=== PATIENT | male | born 1960 | race Caucasian/White ===

== ENCOUNTER → 2016-10-02 | Outpatient (CLI) | payer BC ==
--- NOTE | 2016-10-02 22:33 | CT ---
EXAMINATION TYPE: CT chest w con DATE OF EXAM: 10/02/2016 5:08 PM COMPARISON: Radiographs 05/12/2016 HISTORY: 56-year-old male with difficulty breathing for one year. TECHNIQUE: Contiguous axial scanning of the chest after the administration of 100 mL of Omnipaque 300 . Coronal/sagittal reconstructions performed. CT DLP: 805mGycm. Automatic exposure control utilized for a dose reduction. FINDINGS: The heart is normal size without pericardial effusion. Mild coronary vessel calcifications are presen t and are remarkable for coronary artery disease. The ascending aorta is ectatic and 3.9 cm. There is variant direct takeoff of the left vertebral april ry directly from the aortic arch. 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 No thoracic lymphadenopathy. -Evaluation of the lungs shows a 4 mm pulmonary nodule at the anterior right midlung, axial image 32. -6 mm pulmonary nodule posterior right midlung, axial image 34. -4 mm pulmonary nodule anterior right midlung just below, axial image 35. No consolidation or pleural effusion. Visualized upper abdomen shows diffuse decreased attenuation of the liver. Bones: Mild degenerative disc disease mid thoracic spine. No osseous destructive process. IMPRESSION: 1. No acute pulmonary process. 2. A few pulmonary nodules on the right measuring up to 6 mm. A 6-12 month and subsequent 18-24 month follow-up exam is recommended to ensure stability and a benign etiology. 3. Ectatic ascending aorta (3.9 cm) and mildly aneurysmal upper descending thoracic aorta (3.3 cm). 4. Hepatic steatosis. Correlate with LFTs, lipid profile, and patient risk factors.
== END | disposition home or self-care (01) ==
LOC: RADCTMAIN 16:38
PROVIDERS: ATTEND Internal Medicine Critical Care Medicine
DX: R91.8 Other nonspecific abnormal finding of lung field (principal); I71.2 Thoracic aortic aneurysm, without rupture; R06.2 Wheezing
CPT/HCPCS: 71260

== ENCOUNTER 2018-03-11 05:43 | Day surgery (SDC) | payer BC ==
[2018-03-05 10:34] VITALS: BMI 24.2
[~2018-03-11 05:43] MED LIST: FAMOTIDINE 20 MG/2 ML VIAL IV ONE; ceFAZolin 1,000 MG in DEXTROSE/WATER 1 50ML.BAG IV ONE
[2018-03-11] MEDS ORDERED: LIDOCAINE 1% 20 ML VIAL (10MG/ML) FOR IV START INTRADERMA PRN (06:00)
[2018-03-11] MEDS ORDERED: MIDAZOLAM 2 MG/2 ML VIAL IV PRN (06:00)
[2018-03-11] MEDS ORDERED: LACTATED RINGERS 1,000 ML IV SCH (06:00)
[2018-03-11] MEDS ORDERED: HYDROmorphone 1 MG/ML 1 ML SYRINGE IVP PRN (06:00)
[2018-03-11 06:15] VITALS: RESP 16
[2018-03-11] MEDS: OXYMETAZOLINE 0.05% NASL SPRAY 1 SPRAY BOTTLE NASAL ONE ×5 (06:19→06:37)
[2018-03-11] MEDS ORDERED: ONDANSETRON 4 MG/2 ML VIAL IVP ONE (07:25)
[2018-03-11] MEDS ORDERED: BUPIVACAIN-EPI 0.5%-1:200,000 30 ML VIAL SQ ONE (07:26)
[2018-03-11] MEDS ORDERED: CIPROFLOXACIN-DEXAMETH 0.3-0.1% DROPS 7.5 ML BTL BOTH EARS ONE (07:26)
[2018-03-11] MEDS ORDERED: LIDOCAINE 1%-EPI 1:100,000 30 ML VIAL SQ ONE (07:26)
[2018-03-11] MEDS ORDERED: MIDAZOLAM 2 MG/2 ML VIAL ONE (07:28)
[2018-03-11] MEDS ORDERED: KETOROLAC 30 MG/ML 1 ML VIAL ONE (07:28)
[2018-03-11] MEDS ORDERED: SUCCINYLCHOLINE CHLORIDE 100 MG/5 ML SYR IV ONE (07:28)
[2018-03-11] MEDS ORDERED: fentaNYL (PF) 50 MCG/ML 2 ML AMP ONE (07:28)
[2018-03-11] MEDS ORDERED: PROPOFOL 10 MG/ML 20 ML VIAL IV ONE (07:28)
[2018-03-11] MEDS ORDERED: LIDOCAINE 1% INJ 10MG/ML (20 ML MDV) ONE (07:28)
[2018-03-11] MEDS ORDERED: LACTATED RINGERS 1,000 ML IV ONE (08:07)
[2018-03-11 08:33] VITALS: TEMP 97.2
--- NOTE | 2018-03-11 08:36 | P.OP ---
Date of Procedure: 03/11/18 Preoperative Diagnosis: Chronic eustachian tube dysfunction Hypertrophy of posterior inferior turbinates Chronic otitis media with effusion Conductive hearing loss bilaterally Retained left tube with resultant perforation upon removal requiring myringoplasty. Postoperative Diagnosis: Same Procedure(s) Performed: Bilateral direct microscopic tympanostomy tube placement Microscopic removal of left tympanostomy tube with tympanostomy and myringoplasty, left Bilateral endoscopic balloon eustachian tuboplasty Bilateral posterior resection of the inferior turbinates Anesthesia: GETA Surgeon: Jose Ferrari Estimated Blood Loss (ml): 0 Pathology: none sent Condition: stable Disposition: PACU Indications for Procedure: This patient has had a lifetime of eustachian tube dysfunction with recurrent alert effusion chronic otitis media with effusion conductive hearing loss etc. He's had several sets of tubes and continues to need these tubes and after long discussion we decided to proceed forward with a bilateral balloon eustachian tuboplasty along with placement of new tubes and removal of a left oral tube with a patch to the left tympanic membrane along with removal of some crowded tissue of the posterior inferior turbinates. All risks, benefits, and alternative therapies were discussed. Consent was obtained and all questions were answered. Operative Findings: Patient was found to have adhesions eustachian tube bilaterally with large hypertrophic posterior inferior turbinates are were crowding the anterior face of the eustachian tube orifice. The patient was also found to have a bilateral middle ear effusion and myringosclerosis of both tympanic membranes. Description of Procedure: This patient was taken to the operative room and placed in supine position. A general inhalation anesthetic was administered the patient by mask and subsequently intubated with a cuffed endotracheal tube by the department of anesthesia with a functioning IV line in place. Patient was monitored throughout the entire case by the department of anesthesia. Both ears were visualized with a 250 mm Zeiss microscope and cerumen and epithelial debris was removed from the external auditory canals bilaterally. Tympanostomy incisions were made inferiorly and tubes were placed with removal of a large amount of middle ear effusion. Patient had a retained nonfunctioning tube on the left which was removed with a house pick after tympanostomy was performed, which left a perforation. We then prepped the drumhead after tube removal. After the drumhead perforation was prepped we cut graft material utilizing a bio design graft material and placed as an overlay graft. The graft was in excellent position the edge of the perforation was roughened to allow closure and the patient tolerated this well. After tubes were placed bilaterally and the left tube was removed from the left ear along with a left myringoplasty, attention was then paid to the nose were with use of an endoscope utilizing a 0 Walls dallin scope we entered the nose bilaterally and went to the eustachian tube orifice bilaterally. There was a large amount of posterior inferior turbinate tissue that was resected with a up-biting boss. After the posterior portion of the inferior turbinates were resected with use of a up-biting boss the balloon was inserted into the eustachian tube orifice and we did insufflation's in the standard fashion. After both eustachian tubes were insufflated with the balloon in the appropriate fashion all instrumentation was removed. Hemostasis was spontaneous and complete. To summarize patient had a new tubes placed bilaterally along with resection of the posterior portion of the inferior turbinates. We removed a retained left tube and did a patch on the left side. Balloon eustachian tuboplasty was performed bilaterally following standard protocol and we did resect the posterior portion of the inferior turbinate to prevent crowding. Patient tolerated this well and follow- up will be in the office in 1 week for recheck. The patient is to call me if any from should arise in the interim.
[2018-03-11 09:14] VITALS: PULSE 61
[2018-03-11 09:26] VITALS: BP 137/85
== END 2018-03-11 09:45 | disposition home or self-care (01) ==
LOC: OR 05:43
PROVIDERS: ATTEND Otolaryngology
DX: H90.0 Conductive hearing loss, bilateral (principal); J34.3 Hypertrophy of nasal turbinates; H65.493 Other chronic nonsuppurative otitis media, bilateral; K21.9 Gastro-esophageal reflux disease without esophagitis; J45.909 Unspecified asthma, uncomplicated; Z87.891 Personal history of nicotine dependence; H93.19 Tinnitus, unspecified ear; Z79.2 Long term (current) use of antibiotics; Z79.1 Long term (current) use of non-steroidal anti-inflammatories (NSAID); Z79.891 Long term (current) use of opiate analgesic; Z79.51 Long term (current) use of inhaled steroids; Z79.52 Long term (current) use of systemic steroids; Z79.899 Other long term (current) drug therapy; Z91.09 Other allergy status, other than to drugs and biological substances
CPT/HCPCS: 69436; 69949; 30140; C1763; C1726; J2250; J2405; J2001; J3010; J1885; J0690; J0330; J2704

== ENCOUNTER → 2019-03-29 | Outpatient (CLI) | payer BC ==
--- NOTE | 2019-03-29 18:05 | PN ---
PROGRESS NOTE Derrick is 58 and coming in for an annual check regarding his obstructive sleep apnea. He is back to using his CPAP on a regular basis. He has severe obstructive sleep apnea with an AHI of 35. Despite demonstrating adequate compliance, the patient continues to be increasingly tired and sleepy, especially during working hours. At times this is affecting his ability to function and concentrate. The patient has gained about 18 pounds since his last evaluation. He used to weigh 222 pounds and currently is up to 240. Despite that, he remains on CPAP therapy at a pressure of at a pressure of 9 cm and the treatment continues to be successful with an AHI while on treatment being at 0.4. Unfortunately he continues to be somnolent and sleepy. His [place] score is 17. He is averaging more than 6 hours of CPAP use per night. As such, the patient may be a good candidate for stimulant therapy, knowing that he has been having issues with increased sleepiness and he is worried that he may fall asleep even while driving. No sleep paralysis. No hallucinations. No cataplexy. No substance abuse. No head trauma. No other secondary comorbidities contributing to increased sleepiness. REVIEW OF SYSTEMS: Fourteen-point review of system was done. Positive findings are all mentioned above in the history of present illness. In summary, the patient continues to be sleepy and tired. He has gained weight. No sinus allergies. No nasal congestion, dry nose or dry mouth. No heartburn. No chest pain or shortness of breath. No headaches. No swelling in the lower extremities. No nausea or vomiting. No abdominal pain. No polyuria. PHYSICAL EXAMINATION: VITAL SIGNS: BP is 131/79, pulse 66, respirations 16, temperature 97.7. Saturations are 98% on room air. Height is 6 feet 5 inches, weight is 240. BMI is 28.4. [place] score is 9. GENERAL APPEARANCE: Calm, comfortable. HEAD: Atraumatic, normocephalic. NECK: Supple. No JVD. No goiter or neck mass. Mallampati class IV. LUNGS: Clear to auscultation. HEART: Heart sounds are regular rate and rhythm. Normal S1, S2. No S3, S4. No murmurs. ABDOMEN: Soft, nontender. No organomegaly. EXTREMITIES: No edema. No cyanosis or clubbing. IMPRESSION: 1. Severe obstructive sleep apnea with apnea/hypopnea index of 35, currently on CPAP therapy with adequate compliance. The patient's AHI is down to 0.4 while on treatment without any significant leaks around the mask. He is providing adequate hours of CPAP use; more than 6 hours; and despite that he continues to be somnolent and sleepy. Rule out residual hypersomnia related to obstructive sleep apnea despite adequate treatment. 2. Hypersomnia. [place] score of 17 to 19. 3. Obesity with interval 18-pound weight gain. Current BMI is 28.4. PLAN: 1. Continue CPAP therapy at the same level of pressure. 2. Renew the CPAP supplies. 3. The patient is using AirFit P10, medium size. 4. Offer this patient modafinil 200 mg p.o. to be taken around 10:00 in the morning, as the patient's most sleepy period is somewhere between 11 a.m. 3 p.m. This should at least stimulate the patient so that he can function properly during working hours. Will continue to follow. The patient will let me know about his overall clinical response while on CPAP and modafinil. MMRONITL / IJN: [id number] /
== END | disposition home or self-care (01) ==
LOC: SLEEP 16:12
PROVIDERS: ATTEND Internal Medicine Critical Care Medicine
DX: G47.33 Obstructive sleep apnea (adult) (pediatric) (principal); G47.10 Hypersomnia, unspecified; E66.9 Obesity, unspecified; Z68.28 Body mass index [BMI] 28.0-28.9, adult; Z99.89 Dependence on other enabling machines and devices

== ENCOUNTER → 2020-03-06 | Outpatient (CLI) | payer BC ==
--- NOTE | 2020-03-06 16:53 | PN ---
PROGRESS NOTE [facility] PROGRESS NOTE: This patient is well known to me. He is 59 years old. He has obstructive sleep apnea with an AHI of 35. He has been extremely compliant with CPAP therapy. During his last evaluation, he was still having hypersomnia and sleepiness. His [place] score was quite high at around 17, even while being successfully treated with CPAP therapy. Based on that, we added Provigil 200 mg in the morning. While on Provigil, the patient did well, especially for the first 6 months. Following that and over the past 3-4 months, the efficacy of Provigil has gone down. The patient is feeling sleepy again despite being on Provigil. In fact, he tells me that the Provigil has not affected his daytime sleepiness. He is falling asleep while working on his computer. He is also taking Celexa in the morning. I checked his compliance data on his CPAP machine, and he is very compliant. He has been averaging around 7.2 hours of CPAP use per night and CPAP use for more than 4 hours is above 80%. His leak is on the order of 1 L and his AHI is down to 0.7. He was having some episodes of vertigo and he was seen by Dr. Ferrari. He was given an MRI of the brain which showed some arachnoid cysts. This is not related to any symptoms of hypersomnia. No seizure activity. No headaches. No substance abuse. No head trauma. No history of any meningitis. His father had obstructive sleep apnea, and he was adequately treated with CPAP. No family history of narcolepsy. No sleep paralysis, hallucinations or cataplexy. No other comorbidities to account for his chronic hypersomnia. PHYSICAL EXAMINATION: VITAL SIGNS: BP is 148/97, pulse 64, respirations 16, temperature 97.8, saturation 97% on room air. Height is 6 feet 5 inches, weight is 263, and BMI is 30.7. [place] score is 17. GENERAL APPEARANCE: Calm, comfortable. HEAD: Atraumatic, normocephalic. NECK: Supple. No JVD. No goiter or neck masses. LUNGS: Clear to auscultation. HEART: Heart sounds are regular rate and rhythm. Normal S1, S2. No S3, S4. No murmurs. ABDOMEN: Soft, nontender. No organomegaly. EXTREMITIES: No edema. No cyanosis or clubbing. IMPRESSION: 1. Obstructive sleep apnea, severe. AHI of 35. Despite being adequately treated with CPAP therapy, the patient continues to be somnolent and sleepy. Provigil was added, with some limited success initially, and subsequently his symptoms of hypersomnia are back. Despite his 20- to 22-pound weight gain, the patient continues to be successfully treated regarding his obstructive sleep apnea and there is no major impact on his excessive daytime sleepiness. No other obvious comorbidities contributing to that. 2. Hypersomnia despite being adequately treated with CPAP therapy and despite being on Provigil. 3. Obesity with interval 22-pound weight gain. 4. History of attention deficit hyperactivity disorder. PLAN: 1. Continue CPAP therapy at the same level of pressure. 2. Increase the Provigil to 200 mg twice a day. 3. Based on his suboptimal response to Provigil, I may switch this patient to Sunosi initially at 37.5 mg and later on to 75 mg p.o. daily. The paperwork for Sunosi will be sent, and the patient will see me back in 3 months' time in the main office to give me an update on his clinical response and compliancy while being on his new medication. Meanwhile, continue using the CPAP and continue using the Provigil for now. Sleep hygiene measures are adequate. He is extending his sleep hours to an average of 8 hours, which I think is adequate. No other obvious comorbidities contributing to his hypersomnia. MMODL / IJN: [id number] /
== END | disposition home or self-care (01) ==
LOC: SLEEP 15:30
PROVIDERS: ATTEND Internal Medicine Critical Care Medicine
DX: G47.33 Obstructive sleep apnea (adult) (pediatric) (principal); G47.10 Hypersomnia, unspecified; E66.9 Obesity, unspecified; Z86.59 Personal history of other mental and behavioral disorders; Z99.89 Dependence on other enabling machines and devices

== ENCOUNTER → 2020-06-06 | Outpatient (CLI) | payer BC | END | disposition home or self-care (01) | LOC: LABWHC1 12:50 | PROVIDERS: ATTEND Family Medicine | DX: Z20.828 Contact with and (suspected) exposure to other viral communicable diseases (principal) | CPT/HCPCS: U0003; C9803 ==

== ENCOUNTER → 2020-08-21 | Outpatient (CLI) | payer BC ==
--- NOTE | 2020-08-21 17:14 | PN ---
PROGRESS NOTE This is a 59-year-old male patient coming in for a followup regarding his obstructive sleep apnea. The patient is very well known to me. The patient has been diagnosed having severe CIELO with an AHI of 35 and unfortunately, despite adequate treatment of his obstructive sleep apnea with a CPAP machine and adequate compliance that has been demonstrated over the years, the patient continues to be somnolent and sleepy. At that point the patient was started on Provigil 200 mg initially, and for some time he felt great. Subsequently the Provigil lost its effect, even while increasing the dose to 200 mg twice a day. For now, despite his effective treatment, the patient continues to be somnolent and sleepy. [place] Score is 19, and this is affecting his quality of life. He gets tired and sleepy during the day, especially during working hours. The patient is averaging around 7.1 hours of CPAP use per night. His CPAP use for more than 4 hours is 28/30, which is above 90%. His AHI is down to 0.7 with a leak of 7 L/minute. He is trying to lose weight. He is down to 64 pounds. No head trauma. No meningitis. No stroke. No side effects of Provigil. Note that he has used other stimulants such as Adderall at a younger age, which improved his attention span and concentration and fatigue. During his last evaluation I made an attempt to switch this patient to Sunosi at a dose of 75 mg p.o. daily. A prescription was sent and it was declined by the insurance. Based on the letter obtained from the [employer] insurance company, the patient had to be tried at least on 2 different drugs, such as Provigil/Nuvigil or any other conventional stimulants such as dexamphetamine or methylphenidate prior to being considered for Sunosi. Based on that, I am thinking of proceeding with treatment with low-dose Adderall 10 mg b.i.d. to improve his daytime somnolence and sleepiness. He is agreeable to that. No history of any substance abuse. REVIEW OF SYSTEMS: Fourteen-point review of systems was done. Positive findings are all mentioned above in the history of present illness. No sleep paralysis. No hallucinations. No cataplexy. No head trauma. No seizure activity. No issues with blood pressure. PHYSICAL EXAMINATION: VITAL SIGNS: BP is 130/90, pulse 91, respirations 24, temperature 96.9, saturation 97% on room air. Weight is 64. BMI is 27 to 29.7. [place] score is 19. GENERAL APPEARANCE: Calm, comfortable. HEAD: Atraumatic, normocephalic. NECK: Supple. No JVD. No goiter or neck masses. Mallampati class IV. LUNGS: Clear to auscultation. HEART: Heart sounds are regular rate and rhythm. Normal S1, S2. No S3, S4. No murmurs. ABDOMEN: Soft, nontender. No organomegaly. EXTREMITIES: No edema. No cyanosis or clubbing. NEUROLOGIC: Awake and alert. There is no focal neurological deficit. IMPRESSION: 1. Severe obstructive sleep apnea, AHI of 35, adequately treated with CPAP, and the compliance data has been satisfactory. Nevertheless, the patient continues to be somnolent and sleepy with an elevated [place] score of 19. This hypersomnia and sleepiness persisted despite being on Provigil at a higher dose of 200 mg twice a day. 2. Hypersomnia; could be related to obstructive sleep apnea. Not responsive to Provigil. 3. Obesity with interval weight loss. 4. Previous history of attention deficit hyperactivity disorder. PLAN: 1. Continue CPAP therapy. Compliancy was checked. Numbers look great. Keep the same pressure setting and keep the same compliancy effort as being done by the patient. 2. Start the patient on Adderall 10 mg twice a day, the first tablet to be taken at 7:00, the the second tablet around 1 p.m., to give him enough stimulation for his functionality during the day, especially during working hours. 3. Monitor side effect profile of Adderall. 4. Stop the Provigil for now, knowing that this has not caused any significant improvement. 5. Ultimately, if this fails, the patient will be considered for an alternative stimulant such as Sunosi. Based on insurance requirements, the patient had to be started on an alternative conventional stimulant, and for that reason I started the patient on Adderall. Side effect profile was explained. The patient has taken the medication in the past, and he is willing to try it again. He will see me back in a few months' time in followup. MMODL / IJN: [id number] /
== END ==
LOC: SLEEP 15:23
PROVIDERS: ATTEND Internal Medicine Critical Care Medicine
DX: G47.33 Obstructive sleep apnea (adult) (pediatric) (principal); G47.10 Hypersomnia, unspecified; E66.9 Obesity, unspecified; F90.9 Attention-deficit hyperactivity disorder, unspecified type; Z68.29 Body mass index [BMI] 29.0-29.9, adult; Z87.891 Personal history of nicotine dependence

== ENCOUNTER → 2020-09-24 | Outpatient (CLI) | payer BC ==
--- NOTE | 2020-09-24 17:27 | XR ---
EXAMINATION TYPE: XR KUB DATE OF EXAM: 09/24/2020 Comparison: None Clinical History: 60-year-old male Abd pain Findings: Lung bases are clear. No evidence for free intraperitoneal air. No dilated small bowel or air-fluid levels. Scattered [id number] stool with air extending dista lly to the rectum. Right-sided pelvic phleboliths. Impression: No evidence for free air or bowel obstruction. Mild to moderate stool burden.
== END | disposition home or self-care (01) ==
LOC: RADXRMAIN 16:41
PROVIDERS: ATTEND Family Medicine
DX: R10.9 Unspecified abdominal pain (principal)
CPT/HCPCS: 74018

== ENCOUNTER → 2020-12-03 | Outpatient (CLI) | payer BC | END | disposition home or self-care (01) | LOC: LABWHC1 07:13 | PROVIDERS: ATTEND Family Medicine | DX: R51.9 Headache, unspecified (principal) | CPT/HCPCS: 36415; 83835 ==

== ENCOUNTER → 2020-12-18 | Outpatient (CLI) | payer BC ==
--- NOTE | 2020-12-18 18:38 | ECHOF ---
Referral Reason:R51.9 Headache, I10 Hypertension MEASUREMENTS -------- HEIGHT: 200.7 cm WEIGHT: 117.9 kg BP: IVSd: 1.7 cm (0.6 - 1.1) LVIDd: 3.6 cm (3.9 - 5.3) LVPWd: 1.6 cm (0.6 - 1.1) EDV(Teich): 53 ml IVSs: 1.9 cm LVIDs: 2.3 cm LVPWs: 1.9 cm %IVS Thck: 10 % ESV(Teich): 18 ml EF(Teich): 66 % %FS: 36 % SV(Teich): 35 ml LALs A4C: 4.8 cm LAAs A4C: 17.5 cm LAESV A-L A4C: 54 ml LAESV MOD A4C: 45 ml LALs A2C: 4.3 cm LAAs A2C: 13.6 cm LAESV A-L A2C: 36 ml LAESV MOD A2C: 35 ml LAESV(A-L): 47 ml LAESV Index (A-L): 18.25 ml/m Ao Diam: 3.6 cm (2.0 - 3.7) AV Cusp: 1.9 cm (1.5 - 2.6) MV E Jhonny: 0.56 m/s MV DecT: 287 ms MV Dec [place]: 2.0 m/s MV A Jhonny: 0.85 m/s MV E/A Ratio: 0.66 MV PHT: 83 ms LVOT Vmax: 1.20 m/s LVOT maxP.73 mmHg AV Vmax: 1.83 m/s AV maxP.38 mmHg AV Vmax: 1.93 m/s AV Vmean: 1.33 m/s AV maxP.92 mmHg AV meanP.72 mmHg AV Env.Ti: 221 ms AV VTI: 29.4 cm AR Vmax: 3.75 m/s AR maxP.33 mmHg AR PHT: 559 ms AR Dec Time: 1927 ms AR Dec [place]: 1.9 m/s FINDINGS -------- Sinus rhythm. This was a technically difficult study with suboptimal views. The left ventricular size is normal. There is moderate concentric left ventricular hypertrophy. O verall left ventricular systolic function is normal with, an EF between 55 - 60 %. The diastolic fi lling pattern is normal for the age of the patient 13.09. The right ventricle is normal in size. Normal LA size by volume 22+/-6 ml/m2. The right atrial size is normal. Lumason used Interatrial and interventricular septum intact. There is mild aortic valve sclerosis. There is mild aortic regurgitation. There is no evidence of aortic stenosis. No mitral regurgitation. Mild tricuspid regurgitation present. There is no evidence of pulmonary hypertension. The right v entricular systolic pressure, as measured by Doppler, is {RVSP}. There is no pulmonic regurgitation present. The aortic root is mildy dilated. IVC Not well visulized. There is no pericardial effusion. CONCLUSIONS -------- 1. The left ventricular size is normal. 2. There is moderate concentric left ventricular hypertrophy. 3. Overall left ventricular systolic function is normal with, an EF between 55 - 60 %. 4. There is mild aortic valve sclerosis. 5. There is mild aortic regurgitation. 6. Mild tricuspid regurgitation present. 7. The aortic root is mildy dilated. PARTY CHIEF: Katarzyna Johansen RDCS
--- NOTE | 2020-12-19 07:17 | US ---
EXAMINATION TYPE: US carotid duplex BILAT DATE OF EXAM: 12/18/2020 COMPARISON: NONE CLINICAL HISTORY: R51.9 Headache. EXAM MEASUREMENTS: RIGHT: Peak Systolic Velocity (PSV) cm/sec ----- Right CCA: 87.0 ----- Right ICA: 72.9 ----- Right ECA: 115.0 ICA/CCA ratio: 0.84 RIGHT: End Diastole cm/sec ----- Right CCA: 20.4 ----- Right ICA: 20.6 ----- Right ECA: 19.2 LEFT: Peak Systolic Velocity (PSV) cm/sec ----- Left CCA: 103.0 ----- Left ICA: 85.6 ----- Left ECA: 95.8 ICA/CCA ratio: 0.83 LEFT: End Diastole cm/sec ----- Left CCA: 26.5 ----- Left ICA: 27.2 ----- Left ECA: 15.6 VERTEBRALS (direction of flow): Right Vertebral: Antegrade Left Vertebral: Antegrade Rhythm: Normal No significant stenosis seen. No elevated velocities. IMPRESSION: No sonographic evidence for hemodynamically significant stenosis of the bilateral carotid arteries. Criteria for Assigning % of Stenosis / Diameter reduction (Estimation based on the indirect measurements of the internal carotid artery velocities (ICA PSV). 1. Normal (no stenosis)=ICA PSV < 125 cm/s: ratio < 2.0: ICA EDV<40 cm/s. 2. Less than 50% stenosis=ICA PSV < 125 cm/s: ratio < 2.0: ICA EDV<40 cm/s. 3. 50 to 69% stenosis=ICA PSV of 125 to 230 cm/s: ration 2.0 ? 4.0: ICA EDV 40-100 cm/s. 4. Greater than 70% stenosis to near occlusion= ICA PSV > 230 cm/s: ratio > 4.0: ICA EDV > 100 cm/s. 5. Near occlusion= ICA PSV velocities may be low or undetectable: variable ratio and ICA EDV. 6. Total occlusion=unable to detect flow.
--- NOTE | 2020-12-19 07:22 | CT ---
EXAMINATION TYPE: CT brain wo/w con DATE OF EXAM: 12/18/2020 COMPARISON: None INDICATION: headaches and htn DLP: 2059.8 mGycm, Automated exposure control for dose reduction was used. CONTRAST: None CT of the brain is performed utilizing 3 mm thick sections through the posterior fossa and 3 mm thick sections through the remaining calvarium. Study is performed within 24 hours of arrival to the hosp [facility]. No abnormal hyperdensity is present to suggest an acute intracranial hemorrhage. There is a very low density area within the posterior medial right posterior fossa likely is an arach noid cyst. Extra-axial spaces otherwise appear within normal limits. Ventricles and sulci appear appr opriate for the patient's age. No acute infarcts are evident. There appears to be some hypodensity within the inferior midbrain. Thi s however appears to be related to beam hardening artifact from the petrous ridges. If closer evaluat ion of the christina would be of benefit, MRI could be performed. Postsurgical changes are within the paranasal sinuses. No suspicious air-fluid levels are evident. No suspicious enhancement is evident contrast imaging. IMPRESSIONS: 1. Suspected artifact within the midbrain and christina level likely related to beam hardening artifact. Closer evaluation would be of benefit, MRI could be performed. 2. Arachnoid cyst posterior medial right posterior fossa.
== END | disposition home or self-care (01) ==
LOC: RADECHMAIN 15:40
PROVIDERS: ATTEND Family Medicine
DX: G93.0 Cerebral cysts (principal)
CPT/HCPCS: 93306; 93880; 70470; Q9950; Q9967

== ENCOUNTER → 2020-12-24 | Outpatient (CLI) | payer BC ==
--- NOTE | 2020-12-24 11:39 | EST ---
EXERCISE STRESS AGE: 60 SEX: M HT: 6'7" WT: 260 lbs. PROTOCOL: Danielito STAGE: 3 DURATION OF EXERCISE: 10:16 HEART RATE REST: 75 BLOOD PRESSURE REST: 124/91 MAXIMUM HEART RATE ACHIEVED: 140 MAXIMUM BLOOD PRESSURE: 184/90 85% MPHR: 136 100% MPHR: 160 METS: 11.9 INDICATION: Hypertension. CLINICAL INFORMATION: Baseline EKG shows sinus rhythm, normal axis, normal intervals. Patient exercised on Danielito protocol for a total of 10 minutes achieving 11 METS, 88% of predicted maximal heart rate without chest pain or diagnostic ST-segment depression. Rare PVCs are noted during exercise. CONCLUSIONS: 1. Excellent exercise tolerance. 2. Negative stress test by EKG criteria. MMODL / IJN: [id number] /
== END | disposition home or self-care (01) ==
LOC: RADNMMAIN 08:18
PROVIDERS: ATTEND Family Medicine
DX: I10 Essential (primary) hypertension (principal)
CPT/HCPCS: 93017

== ENCOUNTER → 2021-01-16 | Outpatient (CLI) | payer BC ==
--- NOTE | 2021-01-16 22:17 | MR ---
EXAMINATION TYPE: MR brain wo con DATE OF EXAM: 01/16/2021 COMPARISON: Correlation CT 12/18/2020 HISTORY: 60 year-old male G93.0, Abnormal CT imaging, arachnoid cyst. TECHNIQUE: Multiplanar, multisequence images of the brain and brainstem were acquired without IV con trast. Diffusion weighted imaging is performed. FINDINGS: No evidence for acute infarction, hemorrhage, midline shift shift, herniation, effacement of basal ci sterns, or extra-axial fluid collection. Prominent CSF space along the right paramedian retrocerebellar posterior cranial fossa measuring 3.9 cm craniocaudal by 2.0 cm AP by 2.7 cm wide. This follows CSF signal sequences and has no restricted diffusion. Findings most suggestive of a arachnoid cyst. There is mnjy-xa-vkpriuly volume loss along the cerebral convexities. No hydrocephalus. Major intracranial flow voids are intact. However, there is fusiform aneurysm of the supraclinoid lef t ICA prior to its terminus with a caliber up to 7 mm versus 3.5 mm on the contralateral side. T2/FLAIR weighted sequences show no white matter signal abnormality. Midline structures demonstrate normal morphology. The craniocervical junction is normal. Moderate mucosal thickening within the ethmoid air cells. Globes are intact. IMPRESSION: 1. Mild to moderate cerebral cortical volume loss along the bilateral convexities. No significant whi te matter changes. 2. A 3.9 x 2.7 x 2.0 cm CSF space along the right paramedian retrocerebellar region most suggestive o f an arachnoid cyst. 3. 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 Consider referral to neurosurgery for further surveillance/management. 4. No acute intracranial abnormality seen
== END | disposition home or self-care (01) ==
LOC: RADMRIMAIN 15:36
PROVIDERS: ATTEND Family Medicine
DX: I67.1 Cerebral aneurysm, nonruptured (principal); R93.89 Abnormal findings on diagnostic imaging of other specified body structures
CPT/HCPCS: 70551

== ENCOUNTER 2021-05-12 16:47 | Emergency (ER) | payer BC ==
[2021-05-12 16:51] VITALS: BP 144/81; PULSE 91; TEMP 98.5
[2021-05-12 17:00] VITALS: RESP 18
[2021-05-12] MEDS ORDERED: ACETAMINOPHEN TAB 500 MG TAB PO STA (17:14)
--- NOTE | 2021-05-12 17:26 | ED ---
General Adult HPI - General Chief complaint: Upper Respiratory Infection Stated complaint: headache, fatigue Time Seen by Provider: 05/12/21 16:56 Source: patient, RN notes reviewed, old records reviewed Mode of arrival: ambulatory Limitations: no limitations - History of Present Illness Initial comments: Patient is a 60-year-old male with past medical history remarkable for hypertension, chronic cough from lisinopril use who presents emergency department over concern for possible Covid. Patient was notified by the health department that he was in close contact recently with a COVID-19 positive individual. He was hunting all weekend and has been having some mild upper respiratory symptoms including a runny nose, "tickle" in his throat, and mild nonproductive cough. Denies any shortness of breath, chest pain, abdominal pain. States that he does have some mild joint pain, as well as a extremity mild headache at this time. Denies any fevers. Presents to the emergency department over concern for COVID-19 infection. He is requesting COVID-19 test, as he does not want to spread it at work. Patient was vaccinated with the moderna vaccine. Patient received his flu vaccination. Symptoms started on Thursday, is currently Thursday. His no other acute complaints at this time. Patient is eating and drinking normally. No diarrhea, nausea, vomiting.Patient discussed headache is a typical headache, but like distribution around his head that is low in severity. - Related Data Home Medications Medication Instructions Recorded Confirmed Atorvastatin [Lipitor] 10 mg PO DAILY 05/12/21 05/12/21 DULoxetine HCL [Cymbalta] 60 mg PO DAILY 05/12/21 05/12/21 Tamsulosin HCl [Flomax] 0.4 mg PO DAILY 05/12/21 05/12/21 lisinopriL [Zestril] 20 mg PO DAILY 05/12/21 05/12/21 Previous Rx's Medication Instructions Recorded Azithromycin [Zithromax] 250 mg PO DAILY 4 Days #4 tab 05/12/21 Allergies Allergy/AdvReac Type Severity Reaction Status Date / Time No Known Allergies Allergy Verified 05/12/21 18:02 Review of Systems ROS Statement: Those systems with pertinent positive or pertinent negative responses have been documented in the HPI. Review of Systems: CONST: Denies fever EYES: Denies blurry vision ENT: Endorses nasal congestion C/V: Denies Chest pain RESP: Denies shortness of breath GI: Denies abdominal pain : Denies dysuria SKIN: Denies rash. MSK: Endorses generalized joint pain NEURO: Endorses mild headache. ROS Other: All systems not noted in ROS Statement are negative. Past Medical History Past Medical History: GERD/Reflux, Hypertension Additional Past Medical History / Comment(s): bad ears, bad back History of Any Multi-Drug Resistant Organisms: None Reported Past Surgical History: Ear Surgery, Orthopedic Surgery Additional Past Surgical History / Comment(s): BILATERAL EYE SURGERY , MULTIPLE EAR SURGERIES Past Anesthesia/Blood Transfusion Reactions: Previous Problems w/ Anesthesia Additional Past Anesthesia/Blood Transfusion Reaction / Comment(s): '"COMBATIVE COMING OUT OF SURGERY" Past Psychological History: ADD/ADHD, Depression Smoking Status: Never smoker Past Alcohol Use History: Occasional Past Drug Use History: None Reported - Past Family History Father Family Medical History: Cancer General Exam - General Exam Comments Initial Comments: General: Appears in no acute distress. HEAD: Normal with no signs of head trauma. EYES: PERRLA, EOMI, conjunctiva normal, no discharge. ENT: Hearing grossly intact, normal oropharynx. RESPIRATORY: Clear breath sounds bilaterally. No wheezes, rales, or rhonchi. No increased work of breathing. No hypoxia. C/V: Regular rate and rhythm. S1 and S2 auscultated, no edema, peripheral pulses 2+ and intact throughout ABD: Abd is soft, nontender, nondistended EXT: Normal range of motion, no obvious deformity SKIN: No rashes or lesions observed on exposed skin. NEURO: Alert and oriented x 4. Cranial nerves II-XII intact. No focal sensory or strength deficits. Ambulate without difficulty. Limitations: no limitations Course Vital Signs 05/12/21 05/12/21 16:49 16:57 Temperature 98.5 F Pulse Rate 91 Respiratory 16 18 Rate Blood Pressure 144/81 O2 Sat by Pulse 97 Oximetry Medical Decision Making - Medical Decision Making Based on the patient's presentation and physical exam, I'm concerned for possible acute COVID-19 infection. Covid swab was obtained and sent. We will also obtain a chest x-ray and provide him with Tylenol. He otherwise has no acute complaints at this time. I do not believe that requires any further laboratory studies or imaging at this time. He was in agreement with this plan. His oxygenation status is within normal limits. There is no increased work of breathing. COVID-19 swab is negative. Chest x-ray shows a possible right midlung pn eumonia. With his symptoms, we will treated as community-acquired pneumonia. On reevaluation, patient remains stable with normal vital signs. I discussed with him the results of his imaging and labs. He expressed understanding. He'll be given a dose of azithromycin prior to discharge as well as a prescription for 4 additional days. He was in agreement this plan. I will provide the patient with a prescription for azithromycin 250 mg 1 tablet daily for 4 days. I instructed the patient to follow up with their PCP in the next 3 days. I explained that the patient should return to the emergency department if they experience any worsening symptoms. Strict return precautions were discussed with the patient. The patient expressed understanding of these instructions. I answered all questions that the patient had. The patient was discharged home in good condition with their prescriptions and follow up information. - Lab Data Lab Results 05/12/21 Range/Units 16:56 Coronavirus (PCR) Not Detected (Not Detectd) Disposition Clinical Impression: CAP (community acquired pneumonia) Disposition: HOME SELF-CARE Condition: Good Instructions (If sedation given, give patient instructions): Community Acquired Pneumonia (ED) Prescriptions: Azithromycin [Zithromax] 250 mg PO DAILY 4 Days #4 tab Is patient prescribed a controlled substance at d/c from ED?: No Referrals: Munir Lainez DO [Primary Care Provider] - 1-2 days
--- NOTE | 2021-05-12 18:01 | XR ---
EXAMINATION TYPE: XR chest 2V DATE OF EXAM: 05/12/2021 CLINICAL HISTORY: cough. TECHNIQUE: Frontal and lateral view of the chest. COMPARISON: 05/12/2016 FINDINGS: The cardiomediastinal silhouette is within normal limits for size. Pulmonary vasculature i s normal. Subtle increased focal opacity of the right mid lung. No pleural effusion. No pneumothorax seen. No acute displaced osseous fracture. IMPRESSION: Subtle focal airspace opacity of the right midlung may represent accentuated pulmonary vasculature, a telectasis, or developing pneumonia.
[2021-05-12] MEDS ORDERED: AZITHROMYCIN 500 MG TAB PO STA (18:16)
== END 2021-05-12 21:09 | disposition home or self-care (01) ==
LOC: EC 16:47
DX: J18.9 Pneumonia, unspecified organism (principal); I10 Essential (primary) hypertension; K21.9 Gastro-esophageal reflux disease without esophagitis; F32.A Depression, unspecified; Z20.822 Contact with and (suspected) exposure to COVID-19
CPT/HCPCS: 71046; 87635; 99284

== ENCOUNTER → 2022-09-23 | Day surgery (SDC) | payer BC ==
[2022-09-18 09:07] VITALS: BMI 24.7
[~2022-09-23] MED LIST changes: -FAMOTIDINE 20 MG/2 ML VIAL IV ONE; +LACTATED RINGERS 1,000 ML IV SCH; +LIDOCAINE 1% (10MG/ML) FOR IV START INTRADERMA PRN; +PROPOFOL 10 MG/ML 20 ML VIAL IV ONE; -ceFAZolin 1,000 MG in DEXTROSE/WATER 1 50ML.BAG IV ONE
[2022-09-23 11:55] VITALS: TEMP 97.3
--- NOTE | 2022-09-23 12:16 | P.GSHP ---
History of Present Illness H&P Date: 09/23/22 Chief Complaint: Change in bowel habits 62-year-old male here today for a colonoscopy. States he is due for colonoscopy. Recently has had constipation. No family history of colon cancer Past Medical History Past Medical History: GERD/Reflux, Hyperlipidemia, Hypertension, Sleep Apnea/CPAP/BIPAP Additional Past Medical History / Comment(s): bad ears, bad back History of Any Multi-Drug Resistant Organisms: None Reported Past Surgical History: Ear Surgery, Orthopedic Surgery Additional Past Surgical History / Comment(s): BILATERAL EYE SURGERY , MULTIPLE EAR SURGERIES, pins placed 2nd great toe right foot Past Anesthesia/Blood Transfusion Reactions: Previous Problems w/ Anesthesia Additional Past Anesthesia/Blood Transfusion Reaction / Comment(s): '"COMBATIVE COMING OUT OF SURGERY" Smoking Status: Former smoker - Past Family History Father Family Medical History: Cancer Additional Family Medical History / Comment(s): prostate cancer Medications and Allergies Home Medications Medication Instructions Recorded Confirmed Type Atorvastatin [Lipitor] 10 mg PO QAM 05/12/21 09/23/22 History DULoxetine HCL [Cymbalta] 90 mg PO QAM 05/12/21 09/23/22 History Tamsulosin HCl [Flomax] 0.4 mg PO QAM 05/12/21 09/23/22 History Losartan [Cozaar] 50 mg PO QAM 07/27/22 09/23/22 History Acetaminophen Tab [Tylenol] 325 mg PO Q6H PRN 09/18/22 09/23/22 History Allergies Allergy/AdvReac Type Severity Reaction Status Date / Time No Known Allergies Allergy Verified 09/23/22 11:53 Surgical - Exam Vital Signs Temp Pulse Resp BP Pulse Ox 97.3 F L 74 18 130/76 99 09/23/22 11:54 09/23/22 11:54 09/23/22 11:54 09/23/22 11:54 09/23/22 11:54 Physical exam: General: Well-developed, well-nourished HEENT: Normocephalic, sclerae nonicteric Abdomen: Nontender, nondistended Extremities: No edema Neuro: Alert and oriented Assessment and Plan (1) Change in bowel habits Narrative/Plan: Will proceed with colonoscopy at this time. Current Visit: Yes Status: Acute Code(s): R19.4 - CHANGE IN BOWEL HABIT SNOMED Code(s): 10576151
[2022-09-23 12:28] VITALS: RESP 16
--- NOTE | 2022-09-23 12:31 | P.PCN ---
Date of Procedure: 09/23/22 Procedure(s) Performed: PREOPERATIVE DIAGNOSIS: Change in bowel habits POSTOPERATIVE DIAGNOSIS: Poor prep, incomplete study PROCEDURE: Incomplete colonoscopy ANESTHESIA: MAC SURGEON: Alex Garcia M.D. SPECIMENS: None ENDOSCOPIC PROCEDURE: The patient was placed on the endoscopy table in the left decubitus position. The Olympus colonoscope was inserted into the anus and passed under direct visualization to the distal sigmoid colon. There was solid stool seen throughout the colon. We aborted the procedure at that time. No gross abnormalities were seen. The patient was taken to the recovery room in stable condition per anesthesia guidelines. RECOMMENDATIONS: Will discuss options of reprep with the patient.
[2022-09-23 12:43] VITALS: BP 119/80; PULSE 66
== END ==
LOC: ORWHC2ENDO 11:02
PROVIDERS: ATTEND Surgery
DX: K59.00 Constipation, unspecified (principal); K21.9 Gastro-esophageal reflux disease without esophagitis; I10 Essential (primary) hypertension; E78.5 Hyperlipidemia, unspecified; G47.30 Sleep apnea, unspecified; Z98.890 Other specified postprocedural states; Z87.891 Personal history of nicotine dependence; Z80.42 Family history of malignant neoplasm of prostate; Z79.899 Other long term (current) drug therapy
CPT/HCPCS: 45330; J2704

== ENCOUNTER → 2023-07-20 | Outpatient (CLI) | payer BC ==
[2023-07-20 16:52] LABS: Appearance,Urine Clear (Clear); Bilirubin,Urine Negative (Negative); Blood,Urine Negative (Negative); Color,Urine Yellow; Glucose,Urine (UA) Negative (Negative); Ketones,Urine Negative (Negative); Leukocyte Esterase,Urine Negative (Negative); Nitrite,Urine Negative (Negative); Protein,Urine Negative (Negative); Specific Gravity,Urine 1.022 (1.001-1.035)
[2023-07-20 17:05] LABS: INR 0.9 (<1.2); Partial Thromboplastin Time 26.1 sec (22.0-30.0); Prothrombin Time 10.2 sec (10.0-12.5)
[2023-07-21 02:34] LABS: Basophils # (A) 0.06 X 10*3/uL (0.00-0.10); Eosinophils % (A) 3.4 %; HCT 47.6 % (39.6-50.0); HGB 16.1 g/dL (13.0-17.0); Lymphocytes # (A) 1.21 X 10*3/uL (0.90-5.00); Lymphocytes % (A) 20.4 %; MCH 31.3 pg (27.0-32.0); MCHC 33.8 g/dL (32.0-37.0); MCV 92.6 FL (80.0-97.0); Mean Platelet Volume 10.2 FL (9.5-12.2); Monocytes # (A) 0.73 X 10*3/uL (0.20-1.00); Monocytes % (A) 12.3 %; NRBC Per 100 WBC 0 X 10*3/uL (0.00-0.01); Neutrophils % (A) 62.4 %; Platelet Count 219 X 10*3/uL (140-440); RBC 5.14 X 10*6/uL (4.40-5.60); RDW 12.3 % (11.5-14.5); WBC 5.93 X 10*3/uL (4.50-10.00)
[2023-07-21 02:48] LABS: ALT 27 U/L (10-49); AST 27 U/L (14-35); Albumin 4.5 g/dL (3.8-4.9); Albumin/Globulin Ratio 1.73 Ratio (1.60-3.17); Alkaline Phosphatase 83 U/L (41-126); Blood Urea Nitrogen 18.3 mg/dL (9.0-27.0); Calcium 9.6 mg/dL (8.7-10.3); Carbon Dioxide 24.6 mmol/L (21.6-31.8); Chloride 101 mmol/L (96-109); Globulin 2.6 g/dL (1.6-3.3); Glucose 100 mg/dL (70-110); Potassium 4.1 mmol/L (3.5-5.5); Sodium 137 mmol/L (135-145); Total Bilirubin 0.4 mg/dL (0.3-1.2); Total Protein 7.1 g/dL (6.2-8.2)
[2023-07-21 03:18] LABS: Prealbumin 23.4 mg/dL (18.0-42.0)
--- NOTE | 2023-07-21 13:15 | XR ---
EXAMINATION TYPE: XR chest 2V DATE OF EXAM: 07/20/2023 COMPARISON: 05/12/2021 HISTORY: 62-year-old male presurgical clearance for back surgery TECHNIQUE: Frontal and lateral views FINDINGS: Heart normal size. Mild tortuosity of the thoracic aorta. No consolidation or pleural effusion. Mild hyperinflation may relate to depth of inspiration or underlying emphysema. Moderate degenerative garcía ge of the bilateral AC joints. IMPRESSION: Hyperinflation may relate to depth of inspiration or underlying emphysema. Clinically correlate. No a cute cardiopulmonary process.
== END | disposition home or self-care (01) ==
LOC: LABWHC1 16:21
PROVIDERS: ATTEND Neurological Surgery
DX: M54.16 Radiculopathy, lumbar region (principal)
CPT/HCPCS: 36415; 71046; 80053; 81003; 83036; 84134; 85025; 85610; 85730; 87070

== ENCOUNTER → 2023-07-21 | Outpatient (CLI) | payer BC | END | disposition home or self-care (01) | LOC: LABWHC1 06:55 | PROVIDERS: ATTEND Neurological Surgery | DX: M54.16 Radiculopathy, lumbar region (principal); I44.4 Left anterior fascicular block; I51.7 Cardiomegaly; R94.31 Abnormal electrocardiogram [ECG] [EKG] | CPT/HCPCS: 36415; 93005 ==

== ENCOUNTER 2023-08-05 07:19 | Emergency (ER) | payer BC ==
[2023-08-05] MEDS: SODIUM CHLORIDE 0.9% 500 ML 500 ML IV STA (08:21)
[2023-08-05] MEDS: SODIUM CHLORIDE 0.9% 1,000 ML IV STA (08:21)
[2023-08-05 08:45] LABS: Basophils # (A) 0.1 k/uL (0-0.2); Basophils % (A) 1 %; Eosinophils # (A) 0.2 k/uL (0-0.7); Eosinophils % (A) 2 %; HGB 15.1 gm/dL (13.0-17.5); Lymphocytes # (A) 0.7 k/uL (1.0-4.8); Lymphocytes % (A) 9 %; MCHC 34.3 g/dL (31.0-37.0); MCV 93.3 fL (80.0-100.0); Mean Platelet Volume 7.8; Monocytes # (A) 0.8 k/uL (0-1.0); Monocytes % (A) 10 %; Neutrophils # (A) 5.6 k/uL (1.3-7.7); Neutrophils % (A) 75 %; Platelet Count 240 k/uL (150-450); RBC 4.72 m/uL (4.30-5.90); RDW 12.1 % (11.5-15.5); WBC 7.5 k/uL (3.8-10.6)
--- NOTE | 2023-08-05 08:56 | CT ---
EXAMINATION TYPE: CT brain wo con DATE OF EXAM: 08/05/2023 COMPARISON: 12/18/2020 HISTORY: 62-year-old male with pain after Syncope, trauma TECHNIQUE: Examination was done in axial plane without intravenous contrast. Coronal and sagittal r econstructions performed. CT DLP: 1226.6 mGycm Automated exposure control for dose reduction was used. FINDINGS: There is no evidence of acute intracranial hemorrhage, acute ischemic changes, mass, mass-effect, or extra-axial fluid collection. There is no effacement of cerebral sulci or basal subarachnoid cister ns. There is no hydrocephalus. There is no midline shift. Espinoza-white matter distinction is preserv ed. Mild age-related volume loss overlying the bilateral cerebral convexities. Asymmetric prominence to t he supraclinoid left ICA, axial image 24 and coronal image 33 with estimated caliber up to 7 mm. Mild mucosal thickening ethmoid air cells. Suspect prior FESS. Mastoid air cells well pneumatized. Or bits and globes are intact. IMPRESSION: 1. No acute intracranial abnormality seen. 2. Incidental asymmetric prominence to the supraclinoid left ICA probably relates to some underlying ICA dolichoectasia up to 7 mm. Follow-up CTA or MRA can exclude underlying aneurysm.
[2023-08-05 09:02] LABS: INR 0.9 (<1.2)
[2023-08-05 09:03] LABS: Partial Thromboplastin Time 25.9 sec (22.0-30.0)
[2023-08-05 09:11] LABS: ALT 31 U/L (4-49); AST 29 U/L (17-59); African American GFR (CKD) >90 (>60 ml/min/1.73 sqM); Albumin 3.5 g/dL (3.5-5.0); Alkaline Phosphatase 80 U/L (38-126); Anion Gap 6 mmol/L; Blood Urea Nitrogen 21 mg/dL (9-20); Calcium 8.7 mg/dL (8.4-10.2); Carbon Dioxide 25 mmol/L (22-30); Chloride 103 mmol/L (98-107); Glucose 97 mg/dL (74-99); Magnesium 2.1 mg/dL (1.6-2.3); Non-African American GFR(CKD) >90 (>60 ml/min/1.73 sqM); Potassium 4.2 mmol/L (3.5-5.1); Sodium 134 mmol/L (137-145); Total Bilirubin 0.9 mg/dL (0.2-1.3); Total Protein 6.3 g/dL (6.3-8.2)
--- NOTE | 2023-08-05 09:51 | XR ---
EXAMINATION TYPE: XR ankle complete LT, XR knee complete LT DATE OF EXAM: 08/05/2023 9:04 AM CLINICAL INDICATION:Male, 62 years old with history of pain; COMPARISON: None TECHNIQUE: XR ankle complete LT, XR knee complete LT; ankle is imaged in frontal, lateral and obliqu e projections. FINDINGS: Oblique fracture of the distal fibula with soft tissue swelling. Moderate degeneration changes knee w ith joint space narrowing and osteophyte formation. There is a fabella present. The proximal fibula a ppears intact. IMPRESSION: Oblique fracture of the distal fibula with soft tissue swelling.
--- NOTE | 2023-08-05 09:55 | XR ---
EXAMINATION TYPE: XR chest 2V DATE OF EXAM: 08/05/2023 9:04 AM CLINICAL INDICATION:Male, 62 years old with history of syncope; COMPARISON: Chest radiographs from 07/20/2023. TECHNIQUE: XR chest 2V Frontal and lateral views of the chest. FINDINGS: Lungs/Pleura: There is no evidence of pleural effusion, focal consolidation, or pneumothorax. Pulmonary vascularity: Unremarkable. Heart/mediastinum: Cardiomediastinal silhouette is unremarkable. Musculoskeletal: No acute osseous pathology. IMPRESSION: No acute cardiopulmonary disease/process.
--- NOTE | 2023-08-05 10:31 | ED ---
General Adult HPI - General Chief complaint: Extremity Injury, Lower Stated complaint: FALL Time Seen by Provider: 08/05/23 07:27 Source: patient, RN notes reviewed Mode of arrival: ambulatory Limitations: no limitations - History of Present Illness Initial comments: 62-year-old male presents emergency department complaint of a syncopal episode. Patient states that he had 3 episodes of this. Patient states he had surgery on his back last week. Patient states he had no complications with the surgery. He states that when he stands up quickly he passes out. He states this happened when he had his right knee surgery also. Patient states he was evaluated mechanical design technician and was cleared of any thing wrong at that time. He does admit that he hit his head and has had mild headache. Patient states she also has left ankle, left knee and left leg pain. Patient states he fell like he may have just injured his calf but states his ankle is very swollen. No history of blood clots states he was on blood thinners when he was in the hospital but has not been anything since he was discharged. He denies any complaints of chest pain or palpitations. - Related Data Home Medications Medication Instructions Recorded Confirmed Atorvastatin [Lipitor] 10 mg PO QAM 05/12/21 09/23/22 DULoxetine HCL [Cymbalta] 90 mg PO QAM 05/12/21 09/23/22 Tamsulosin HCl [Flomax] 0.4 mg PO QAM 05/12/21 09/23/22 Losartan [Cozaar] 50 mg PO QAM 07/27/22 09/23/22 Acetaminophen Tab [Tylenol] 325 mg PO Q6H PRN 09/18/22 09/23/22 Allergies Allergy/AdvReac Type Severity Reaction Status Date / Time No Known Allergies Allergy Verified 08/05/23 07:26 Review of Systems ROS Statement: Those systems with pertinent positive or pertinent negative responses have been documented in the HPI. ROS Other: All systems not noted in ROS Statement are negative. Past Medical History Past Medical History: GERD/Reflux, Hyperlipidemia, Hypertension Additional Past Medical History / Comment(s): bad ears, bad back History of Any Multi-Drug Resistant Organisms: None Reported Past Surgical History: Back Surgery Additional Past Surgical History / Comment(s): BILATERAL EYE SURGERY , MULTIPLE EAR SURGERIES Past Anesthesia/Blood Transfusion Reactions: Previous Problems w/ Anesthesia Additional Past Anesthesia/Blood Transfusion Reaction / Comment(s): '"COMBATIVE COMING OUT OF SURGERY" Past Psychological History: ADD/ADHD, Depression Smoking Status: Never smoker Past Alcohol Use History: Daily, Occasional Past Drug Use History: None Reported - Past Family History Father Family Medical History: Cancer General Exam Limitations: no limitations General appearance: alert, in no apparent distress Head exam: Present: atraumatic, normocephalic, normal inspection Eye exam: Present: normal appearance, PERRL, EOMI. Absent: scleral icterus, conjunctival injection, periorbital swelling Neck exam: Present: normal inspection, full ROM. Absent: tenderness, m eningismus, lymphadenopathy Respiratory exam: Present: normal lung sounds bilaterally. Absent: respiratory distress, wheezes, rales, rhonchi, stridor Cardiovascular Exam: Present: regular rate, normal rhythm, normal heart sounds. Absent: systolic murmur, diastolic murmur, rubs, gallop, clicks Extremities exam: Present: other (Left ankle there is diffuse swelling, tenderness palpation the lateral portion neurovascular intact there is mild calf tenderness and left knee tenderness diffusely with minimal swelling) Neurological exam: Present: alert, oriented X3, reflexes normal. Absent: motor sensory deficit Skin exam: Present: warm, dry, intact, normal color. Absent: rash Course Vital Signs 08/05/23 08/05/23 08/05/23 07:22 09:47 11:10 Temperature 98.1 F 98.2 F 98.7 F Pulse Rate 96 83 86 Respiratory 18 18 20 Rate Blood Pressure 127/87 145/96 138/87 O2 Sat by Pulse 98 100 99 Oximetry EKG Findings - EKG Comments: EKG Findings:: EKG performed at 8: 14 sinus rhythm rate of 90 TN 154 QRS 101 QT/QTc 356/404 - EKG Results: EKG: interpreted by ERMD Procedures - Orthopedic Splinting/Casting Injury #1 Side: left Lower Extremity Injury Location: short leg, ankle Lower Extremity Immobilizer: posterior splint, synthetic pre-padded splint Medical Decision Making - Medical Decision Making Was pt. sent in by a medical professional or institution (, PA, PARLIAMENTARY ARCHIVIST, urgent care, hospital, or skilled nursing...) When possible be specific @ -No Did you speak to anyone other than the patient for history (EMS, parent, family, police, friend...)? What history was obtained from this source @ -No Did you review nursing and triage notes (agree or disagree)? Why? @ -I reviewed and agree with nursing and triage notes Were old charts reviewed (outside hosp., previous admission, EMS record, old EKG, old radiological studies, urgent care reports/EKG's, skilled nursing records)? Report findings @ -No old charts were reviewed Differential Diagnosis (chest pain, altered mental status, abdominal pain women, abdominal pain men, vaginal bleeding, weakness, fever, dyspnea, syncope, headache, dizziness, GI bleed, back pain, seizure, CVA, palpatations, mental health, musculoskeletal)? @ -Differential Syncope: Valvular disease, hypertrophic cardiomyopathy, pulmonary embolism, tamponade, tachycardia, bradycardia, ND, hypovolemia, hemorrhage, dissection, anemia, intracranial hemorrhage, seizure, hypoglycemia, carbon monoxide poisoning, this is not meant to be an all-inclusive list. EKG interpreted by me (3pts min.). @ -As above X-rays interpreted by me (1pt min.). @ -[Chest x-ray shows no acute cardiopulmonary process X-ray left ankle shows distal fibular fracture X-ray left knee no acute fracture dislocation mild osteoarthritis CT interpreted by me (1pt min.). @ -CT brain plain shows what appears to be dilated vessel probable aneurysm, no intracranial hemorrhage or mass effect CT angio brain showing enlarged chronic aneurysm with torturous nature no acute bleed or acute other changes. CT angio chest showing no evidence of PE. U/S interpreted by me (1pt. min.). @ -Ultrasound left leg negative for acute DVT What testing was considered but not performed or refused? (CT, X-rays, U/S, labs)? Why? @ -[None What meds were considered but not given or refused? Why? @ -None Did you discuss the management of the patient with other professionals (professionals i.e. , PA, PARLIAMENTARY ARCHIVIST, lab, RT, psych nurse, social media campaign manager, spud grader, teacher, forest fire management officer, case maker)? Give summary @ -No Was smoking cessation discussed for >3mins.? @ -No Was critical care preformed (if so, how long)? @ -No Were there social determinants of health that impacted care today? How? (Homelessness, low income, unemployed, alcoholism, drug addiction, transportation, low edu. Level, literacy, decrease access to med. care, fci, rehab)? @ -No Was there de-escalation of care discussed even if they declined (Discuss DNR or withdrawal of care, Hospice)? DNR status @ -No What co-morbidities impacted this encounter? (DM, HTN, Smoking, COPD, CAD, Cancer, CVA, ARF, Chemo, Hep., AIDS, mental health diagnosis, sleep apnea, morbid obesity)? @ -None Was patient admitted / discharged? Hospital course, mention meds given and route, prescriptions, significant lab abnormalities, going to OR and other pertinent info. @ -[Urged patient feels greatly improved this time. Patient had multiple syncopal sowed's in which she had this in the past he has been evaluated and cleared by his mechanical design technician. I did recommend labs and imaging which he was f ound to have what appeared to be an aneurysm on CT he states has been evaluated extensively at [facility] and this is unchanged and was told there is no treatment for it. Patient has no evidence of CVA he did have left ankle pain which she has acute fibular fracture was splinted and was given a prescription for a walking boot and follow-up with orthopedics patient cannot use crutches as he had recent lumbar surgery. He had no injury of his surgical site. Patient laboratory studies were unremarkable. Undiagnosed new problem with uncertain prognosis? @ -No Drug Therapy requiring intensive monitoring for toxicity (Heparin, Nitro, Insulin, Cardizem)? @ -No Were any procedures done? @ -No Diagnosis/symptom? @ -Syncope, left ankle fracture Acute, or Chronic, or Acute on Chronic? @ -Acute Uncomplicated (without systemic symptoms) or Complicated (systemic symptoms)? @ -Complicated Side effects of treatment? @ -No Exacerbation, Progression, or Severe Exacerbation? @ -No Poses a threat to life or bodily function? How? (Chest pain, USA, ND, pneumonia, PE, COPD, DKA, ARF, appy, cholecystitis, CVA, Diverticulitis, Homicidal, Suicidal, threat to staff... and all critical care pts) @ -No - Lab Data Result diagrams: 08/05/23 08:09 08/05/23 08:09 Lab Results 08/05/23 08/05/23 08/05/23 Range/Units 08:09 08:09 08:09 WBC 7.5 (3.8-10.6) k/uL RBC 4.72 (4.30-5.90) m/uL Hgb 15.1 (13.0-17.5) gm/dL Hct 44.0 (39.0-53.0) % MCV 93.3 (80.0-100.0) fL MCH 32.0 (25.0-35.0) pg MCHC 34.3 (31.0-37.0) g/dL RDW 12.1 (11.5-15.5) % Plt Count 240 (150-450) k/uL MPV 7.8 Neutrophils % 75 % Lymphocytes % 9 % Monocytes % 10 % Eosinophils % 2 % Basophils % 1 % Neutrophils # 5.6 (1.3-7.7) k/uL Lymphocytes # 0.7 L (1.0-4.8) k/uL Monocytes # 0.8 (0-1.0) k/uL Eosinophils # 0.2 (0-0.7) k/uL Basophils # 0.1 (0-0.2) k/uL PT 10.0 (10.0-12.5) sec INR 0.9 (<1.2) APTT 25.9 (22.0-30.0) sec D-Dimer 7.01 H (<0.60) mg/L FEU Sodium 134 L (137-145) mmol/L Potassium 4.2 (3.5-5.1) mmol/L Chloride 103 (98-107) mmol/L Carbon Dioxide 25 (22-30) mmol/L Anion Gap 6 mmol/L BUN 21 H (9-20) mg/dL Creatinine 0.87 (0.66-1.25) mg/dL Est GFR (CKD-EPI)AfAm >90 (>60 ml/min/1.73 sqM) Est GFR (CKD-EPI)NonAf >90 (>60 ml/min/1.73 sqM) Glucose 97 (74-99) mg/dL Calcium 8.7 (8.4-10.2) mg/dL Magnesium 2.1 (1.6-2.3) mg/dL Total Bilirubin 0.9 (0.2-1.3) mg/dL AST 29 (17-59) U/L ALT 31 (4-49) U/L Alkaline Phosphatase 80 (38-126) U/L Troponin I (0.000-0.034) ng/mL Total Protein 6.3 (6.3-8.2) g/dL Albumin 3.5 (3.5-5.0) g/dL 08/05/23 Range/Units 08:09 WBC (3.8-10.6) k/uL RBC (4.30-5.90) m/uL Hgb (13.0-17.5) gm/dL Hct (39.0-53.0) % MCV (80.0-100.0) fL MCH (25.0-35.0) pg MCHC (31.0-37.0) g/dL RDW (11.5-15.5) % Plt Count (150-450) k/uL MPV Neutrophils % % Lymphocytes % % Monocytes % % Eosinophils % % Basophils % % Neutrophils # (1.3-7.7) k/uL Lymphocytes # (1.0-4.8) k/uL Monocytes # (0-1.0) k/uL Eosinophils # (0-0.7) k/uL Basophils # (0-0.2) k/uL PT (10.0-12.5) sec INR (<1.2) APTT (22.0-30.0) sec D-Dimer (<0.60) mg/L FEU Sodium (137-145) mmol/L Potassium (3.5-5.1) mmol/L Chloride (98-107) mmol/L Carbon Dioxide (22-30) mmol/L Anion Gap mmol/L BUN (9-20) mg/dL Creatinine (0.66-1.25) mg/dL Est GFR (CKD-EPI)AfAm (>60 ml/min/1.73 sqM) Est GFR (CKD-EPI)NonAf (>60 ml/min/1.73 sqM) Glucose (74-99) mg/dL Calcium (8.4-10.2) mg/dL Magnesium (1.6-2.3) mg/dL Total Bilirubin (0.2-1.3) mg/dL AST (17-59) U/L ALT (4-49) U/L Alkaline Phosphatase (38-126) U/L Troponin I <0.012 (0.000-0.034) ng/mL Total Protein (6.3-8.2) g/dL Albumin (3.5-5.0) g/dL Disposition Clinical Impression: Syncope, Closed fracture of left distal fibula Disposition: HOME SELF-CARE Condition: Stable Instructions (If sedation given, give patient instructions): Ankle Fracture (ED) Additional Instructions: Please return to the Emergency Department if symptoms worsen or any other concerns. Is patient prescribed a controlled substance at d/c from ED?: No Referrals: Munir Lainez DO [Primary Care Provider] - 1-2 days Ahmet Villatoro MD [STAFF PHYSICIAN] - 1-2 days Time of Disposition: 11:30
--- NOTE | 2023-08-05 10:52 | CT ---
EXAMINATION TYPE: CT chest angio for PE DATE OF EXAM: 08/05/2023 COMPARISON: Radiograph same day HISTORY: 62-year-old male SOB, elevated d-dimer, recent sx TECHNIQUE: Contiguous axial scanning of the performed with IV Contrast, patient injected with 75 mL o f Isovue 300. Delayed images through the kidneys were obtained. Coronal/sagittal reconstructions perf ormed. CT DLP: 770 mGycm Automated exposure control for dose reduction was used. FINDINGS: Heart normal size without pericardial effusion. No flattening of the interventricular septum or reflu x of contrast into the hepatic veins. LAD and mild RCA coronary artery calcifications are present. So me aortic valvular calcifications also noted. Borderline aneurysm ascending aorta 4.0 cm. 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 Ectatic upper descending thoracic aorta at 3.2 cm.e There is suboptimal contrast bolus with enhancement of the pulmonary arterial system of only 155 Houn sfield units. Mildly enlarged caliber to the main right and left pulmonary arteries up to 2.7 cm sugg esting underlying pulmonary hypertension. No large central definite lobar branch pulmonary embolus is seen. Many of the segmental and more distal arterial branches are under opacified limiting their satish luation. No thoracic lymph adenopathy by CT size criteria. Strandy atelectasis at the lower lungs. Mild diffuse bronchial wall thickening. No consolidation or p leural effusion. Tiny hiatal hernia. Suspect fatty infiltration of the liver in the upper abdomen. Hydropic gallbladder at 4.6 cm wide wit hout surrounding inflammation, likely due to fasting state. Bones: Moderate degenerative disc disease midthoracic spine. IMPRESSION: 1. SUBOPTIMAL CONTRAST BOLUS. NO LARGE CENTRAL OR LOBAR BRANCH PULMONARY EMBOLUS. SEGMENTAL AND MORE DISTAL ARTERIAL BRANCHES ARE LIMITED TO NONDIAGNOSTIC AND EMBOLI IN THESE LOCATIONS CANNOT BE EXCLUDE D ON THE BASIS OF THIS EXAM CORRELATE TO THE NEED FOR REPEAT FOLLOW-UP IMAGING. 2. SOME STRANDY ATELECTASIS IN THE LOWER LUNGS. NO ACUTE PULMONARY PROCESS SEEN.
--- NOTE | 2023-08-05 10:59 | CT ---
EXAMINATION TYPE: CT angio [facility] [place] DATE OF EXAM: 08/05/2023 COMPARISON: CT brain same day HISTORY: 62-year-old male abnormal CT brain, assess for Aneurysm TECHNIQUE: Contiguous axial scanning of the brain performed with IV Contrast, patient injected with 5 0 mL of Isovue 300. Coronal and sagittal MIP reconstructions performed. 3-D reconstructions generated on a dedicated workstation. CT DLP: 747.4 mGycm Automated exposure control for dose reduction was used. FINDINGS: Slightly small caliber to the vertebral artery. Slightly hypoplastic V4 segment right vertebral arter y after the PICA takeoff. Otherwise, vertebral and basilar arteries are patent. There are prominent contributions from bilateral posterior communicating arteries to the mycology teacher. Respir atory circulation otherwise patent. Dural venous sinuses are patent. CT confirms asymmetrically larger caliber and higher positioning of the supraclinoid left ICA with a caliber of 6 mm. However, no saccular aneurysm is seen. There is a plastic A1 segment right MARGO. Anterior circulation otherwise pain. IMPRESSION: 1. CT CONFIRMS ASYMMETRICALLY LARGER AND MORE TORTUOUS SUPRACLINOID LEFT ICA WITH A CALIBER UP TO 6 M M, POSSIBLY ON THE BASIS OF DOLICHOECTASIA. THE CONTRALATERAL SIDE MEASURES UP TO 3 MM. 2. NO SACCULAR ANEURYSM, SIGNIFICANT STENOSIS, OR ARTERIAL OCCLUSION IS SEEN. 3. SOME ANATOMIC VARIATION WITH PERSISTENT ORIGIN OF THE BILATERAL TOLL BRIDGE ATTENDANT's AND APLASTIC A1 SEGMEN T RIGHT MARGO.
--- NOTE | 2023-08-05 11:09 | US ---
EXAMINATION TYPE: US venous doppler duplex LE LT DATE OF EXAM: 08/05/2023 10:55 AM COMPARISON: NONE CLINICAL INDICATION: Male, 62 years old with history of pain; Patient states spine surgery x 6 days a go and had a shot of heparin. Patient states he fell yesterday and left ankle swelled immediately. SIDE PERFORMED: Left TECHNIQUE: The lower extremity deep venous system is examined utilizing real time linear array sonog min with graded compression, doppler sonography and color-flow sonography. VESSELS IMAGED: Common Femoral Vein Deep Femoral Vein Greater Saphenous Vein * Femoral Vein Popliteal Vein Small Saphenous Vein * Proximal Calf Veins (* superficial vessels) Left Leg: Negative for DVT IMPRESSION: Grayscale, color doppler, spectral doppler imaging performed of the deep veins of the lo wer extremities. There is normal flow, compressibility, vascular waveforms.
[2023-08-05] MEDS: HYDROmorphone 0.5 MG/0.5 ML SYRINGE IVP STA (11:19)
[2023-08-05 11:35] VITALS: BP 138/87; PULSE 86; RESP 20; TEMP 98.7
== END 2023-08-05 11:42 | disposition home or self-care (01) ==
LOC: EC 07:19
DX: S82.432A Displaced oblique fracture of shaft of left fibula, initial encounter for closed fracture (principal); E78.5 Hyperlipidemia, unspecified; I10 Essential (primary) hypertension; F32.A Depression, unspecified; F90.9 Attention-deficit hyperactivity disorder, unspecified type; Z79.899 Other long term (current) drug therapy; W18.09XA Striking against other object with subsequent fall, initial encounter
CPT/HCPCS: 36415; 93005; 85379; 80053; 83735; 84484; 85025; 85610; 85730; 73562; 73610; 71046; 93971; 70496; 70450; 71275; 99285; 96374; 96361 ×3; J1170; Q9967

== ENCOUNTER → 2023-08-21 | Outpatient (CLI) | payer BC ==
--- NOTE | 2023-08-22 00:55 | EEG ---
ELECTROENCEPHALOGRAM REPORT CLINICAL HISTORY: This is a 62-year-old gentleman with reported history of orthostatic hypotension with a syncopal episode. The video EEG is obtained to evaluate for seizure epileptiform activity. The video EEG is obtained to evaluate for seizure epileptiform activity. RELEVANT MEDICATION: Per the mobile service rv technician report, the patient is not on any antiepileptic drugs. EEG TYPE: A routine 21 channel EEG with video using the 10/20 electrode placement system. DESCRIPTION: Wakefulness and drowsiness are obtained. During awake state, the posterior-dominant rhythm consists of [id number] voltage of 10.5 to 11 hertz activity that is well modulated, well sustained. There is no physiological stage 2 sleep architecture seen. There is no focal slowing. Interictal and ictal is none. ACTIVATION PROCEDURE: Photic stimulation did not evoke a posterior driving response. There is no abnormality during the photic stimulation. Hyperventilation is not performed. CLINICAL INTERPRETATION: This is a normal routine EEG. There is no focal slowing, epileptiform discharges, or seizure noted during the study. A normal routine EEG does not rule out underlying epilepsy. Clinical correlation is recommended. MMODL / IJN: [id number] / DENIZ
== END ==
LOC: NEUROMAIN 07:48
PROVIDERS: ATTEND Family Medicine
DX: R55 Syncope and collapse (principal); R40.0 Somnolence
CPT/HCPCS: 95816

== ENCOUNTER → 2023-12-31 | Outpatient (CLI) | payer BC ==
[2023-12-31 18:21] LABS: HCT 46.6 % (39.6-50.0); HGB 15.8 g/dL (13.0-17.0); MCH 30.2 pg (27.0-32.0); MCHC 33.9 g/dL (32.0-37.0); MCV 89.1 FL (80.0-97.0); Mean Platelet Volume 10.4 FL (9.5-12.2); NRBC Per 100 WBC 0 X 10*3/uL (0.00-0.01); Platelet Count 213 X 10*3/uL (140-440); RBC 5.23 X 10*6/uL (4.40-5.60); RDW 13.3 % (11.5-14.5); WBC 6.22 X 10*3/uL (4.50-10.00)
[2023-12-31 18:38] LABS: Blood Urea Nitrogen 16.5 mg/dL (9.0-27.0); Carbon Dioxide 21.7 mmol/L (21.6-31.8); Chloride 104 mmol/L (96-109); Potassium 4.4 mmol/L (3.5-5.5); Sodium 139 mmol/L (135-145)
== END | disposition home or self-care (01) ==
LOC: LABPAT 13:29
PROVIDERS: ATTEND Internal Medicine
DX: Z01.812 Encounter for preprocedural laboratory examination (principal); I35.1 Nonrheumatic aortic (valve) insufficiency
CPT/HCPCS: 80051; 82565; 84520; 85027

== ENCOUNTER 2024-01-06 07:13 | Day surgery (SDC) | payer BC ==
[~2024-01-06 07:13] MED LIST changes: +ALPRAZolam 0.25 MG TAB PO PRN; +HEPARIN SODIUM,PORCINE (1 ML) 2,500 UNIT in SODIUM CHLORIDE 0.9% 250 ML IRRIGATION PRN; +HEPARIN SODIUM,PORCINE 10,000 UNIT in SODIUM CHLORIDE 0.9% 1,000 ML IRRIGATION PRN; -LACTATED RINGERS 1,000 ML IV SCH; -LIDOCAINE 1% (10MG/ML) FOR IV START INTRADERMA PRN; +NITROGLYCERIN SL TABS 0.4 MG TAB SUBLINGUAL PRN; -PROPOFOL 10 MG/ML 20 ML VIAL IV ONE
[2024-01-06] MEDS: IV FLUID CONTINUATION 1,000 ML IV ONE ×2 (07:22→07:40)
[2024-01-06 07:32] VITALS: RESP 16; TEMP 97.5
[2024-01-06] MEDS: ASPIRIN 325 MG TAB PO ONE (07:33)
[2024-01-06] MEDS: ATORVASTATIN 80 MG TAB PO ONE (07:34)
[2024-01-06] MEDS: ALPRAZolam 0.5 MG TAB PO PRN (07:44)
[2024-01-06] MEDS: EMPTY BAG 1 BAG with SODIUM CHLORIDE 0.9% 1,000 ML IV ONE (07:44)
[2024-01-06] MEDS ORDERED: SODIUM CHLORIDE 0.9% 1,000 ML IV ONE (07:45)
[2024-01-06] MEDS ORDERED: VERAPAMIL 2.5 MG/ML 2 ML AMP ONE (08:32)
[2024-01-06] MEDS ORDERED: LIDOCAINE 1% INJ 10MG/ML (20 ML MDV) ONE (08:32)
[2024-01-06] MEDS ORDERED: HEPARIN SODIUM 1,000 UN/ML (10ML VL) ONE (08:32)
[2024-01-06] MEDS ORDERED: fentaNYL (PF) 50 MCG/ML 2 ML AMP ONE (08:32)
[2024-01-06] MEDS: BENZOCAINE SPRAY 1 CAN MUCOUS MEM ONE ×2 (08:58→09:01)
[2024-01-06] MEDS: MIDAZOLAM 2 MG/2 ML VIAL IVP ONE ×2 (09:01→09:03)
[2024-01-06] MEDS: fentaNYL (PF) 50 MCG/1 ML VIAL IVP ONE (09:01)
--- NOTE | 2024-01-06 09:18 | P.TEE ---
Description of Procedure(s): Procedure performed: Transesophageal Echocardiogram with color flow doppler, pulsed wave doppler and continuous wave doppler, moderate conscious sedation Moderate conscious sedation: Moderate conscious sedation was supplied with direct supervision of myself using Versed and Fentanyl. Complications: none Indications: aortic insufficiency, bicuspid aortic valve, aortic aneurysm PROCEDURE: After the risks, benefits and alternatives of the above mentioned procedure was explained in detail with the patient, informed consent was obtained. Patient was brought to the lab in a fasting state. Patient was given IV Versed and Fentanyl for sedation. The throat was sprayed with Hurricane to anesthetize the throat. A lubricated Omni probe was then introduced into the esophagus and stomach and multiple views were obtained. 2D echo with color flow doppler, pulsed wave doppler and continuous wave doppler was utilized. Agitated saline bubbles were injected to assess for any intra-atrial shunt. The probe was then removed. Patient tolerated the procedure well. Patient was transferred to the post procedure area in stable and satisfactory condition. FINDINGS: 1. The aortic valve is bicuspid with fusion of the right and left cusps, no significant aortic stenosis, moderate central aortic regurgitation. 2. The mitral valve appears be normal with mild regurgitation. 3. Tricuspid valve appears to be normal. 4. The interatrial septum is intact. No evidence of PFO. 5. Left atrial appendage is free of clot. 6. Left ventricular ejection fraction is 55% 7. Ascending aortic aneurysm measuring 4.1 cm
[2024-01-06] MEDS: LIDOCAINE 1% INJ 10MG/ML (20 ML MDV) SQ ONE (09:26)
[2024-01-06] MEDS: VERAPAMIL SYRINGE (5 MG/10 ML) INTRAARTER ONE (09:31)
[2024-01-06] MEDS: HEPARIN SODIUM 1,000 UN/ML (10ML VL) IVP ONE (09:42)
[2024-01-06 09:53] LABS: O2 Sat Blood Gas 98.9 %
[2024-01-06 09:55] LABS: O2 Sat Blood Gas 77.6 %
[2024-01-06 09:56] LABS: O2 Sat Blood Gas 77.1 %
[2024-01-06] MEDS: HEPARIN SODIUM,PORCINE (1 ML) 2,500 UNIT in SODIUM CHLORIDE 0.9% 250 ML IRRIGATION ONE (09:57)
[2024-01-06] MEDS: HEPARIN SODIUM,PORCINE 10,000 UNIT in SODIUM CHLORIDE 0.9% 1,000 ML IRRIGATION ONE (09:57)
[2024-01-06] MEDS: IOPAMIDOL-300 100ML BTL INTRATHECA ONE (09:59)
--- NOTE | 2024-01-06 10:47 | P.CARDCATH ---
Description of Procedure: PROCEDURES PERFORMED: Left heart catheterization, right heart catherization, bilateral coronary angiography, aortogram, ultrasound guided arterial access INDICATION: Angina, aortic regurgitation CONSENT:I have discussed the risks, benefits and alternative therapies for the above-mentioned procedure and for both sedation/analgesia as well as necessary blood product administration, if indicated, as they pertain to this patient. The patient has indicated understanding and acceptance of the risks and procedures discussed. PROCEDURE: After the risks, benefits and alternatives of the above mentioned procedure explained in detail with the patient, informed consent was obtained. Patient was taken to the catheterization lab and prepped and draped in usual fashion. Ultrasound guidance was used to assess for arterial access. 1% lidocaine was used to anesthetize the right radial and brachial area. A 6- [place] sheath was placed in the right radial artery and right brachial vein using modified Seldinger technique and ultrasound guidance. Left coronary angiography was performed with a 5-[place] JL 3.5 catheter and right coronary angiography was performed with a 5-[place] FR5 catheter in various views. A 5- [place] FR5 catheter was inserted into the left ventricle and pressure measurements were obtained. A 6-[place]-Kandace catheter was inserted into the right atrium, right ventricle, pulmonary artery and pulmonary A wedge positions and pressure measurements and oxygen saturations were obtained. The right radial sheath was removed and a TR band was placed with hemostasis achieved. The right brachial sheath was removed and pressure held with hemostasis achieved. The patient tolerated the procedure well. Patient was transported back to the post catheterization holding area in stable condition. Conscious Sedation: Patient was monitored under the direct supervision of myself for conscious sedation using Versed and fentanyl for a total duration of 39 minutes HEMODYNAMICS: aorta: 140/96 LV: 134/8, LVEDP 15 Right atrium: 3 RV: 25/1 PA: 24/8 PCWP: 8 Right atrial oxygen saturation: 77% Pulmonary artery oxygen saturation: 78% Right radial arterial oxygen saturation: 99% Cardiac output by Azul: 7.8 L/m Cardiac index by Azul: 3.0 L/m/m Cardiac output by thermodilution: 7.9 L/m Cardiac index by thermodilution: 3.1 L/m/m SELECTIVE CORONARY ARTERIOGRAPHY: LEFT MAIN: The left main is a large caliber vessel which bifurcates into the LAD and circumflex. There is no significant stenosis. LEFT ANTERIOR DESCENDING CORONARY ARTERY: LAD is a large caliber vessel which wraps around to the apex. There is a proximal LAD 30% stenosis and otherwise mild luminal irregularities. The proximal diagonal 1 branch has a 30% stenosis in the mid diagonal 1 branch has a 50-60% stenosis. There are [id number] collaterals LEFT CIRCUMFLEX CORONARY ARTERY: Left circumflex is a moderate caliber vessel with mild luminal irregularities. There is a high OM 1 branch with mild luminal irregularities and otherwise the distal circumflex gives off a PLV branch and is codominant. RIGHT CORONARY ARTERY: The right coronary artery is a large caliber vessel which gives off a PDA and PLV branch and is the dominant vessel. There is a long area of proximal and mid diffuse disease with 3 separate focal 80-95% stenoses. Just after a sinoatrial branch there is 100% mid RCA stenosis with right to right collaterals. AORTOGRAM: There appears to be mild aortic root dilation with no significant dissection. There is 2+ aortic insufficiency FINAL IMPRESSION: 1. CAD as described above including 100% mid RCA stenosis, 30% proximal LAD stenosis, 50-60% diagonal 1 branch stenosis 2. Normal left and right sided filling pressures 3. 2+ aortic insufficiency 4. Normal cardiac output, cardiac index PLAN: 1. Aggressive risk factor modification per most recent ACC/AHA guidelines. 2. Distal RCA is well collateralized from the left and right. Attempt medical therapy with SIGNAL TIMER not appearing ideal for PCI.
[2024-01-06] MEDS ORDERED: HEPARIN SODIUM,PORCINE 10,000 UNIT in SODIUM CHLORIDE 0.9% 1,000 ML IRRIGATION PRN (11:04)
[2024-01-06] MEDS ORDERED: EMPTY BAG 1 BAG with SODIUM CHLORIDE 0.9% 1,000 ML IV ONE (11:15)
[2024-01-06 13:52] VITALS: BP 142/83; PULSE 75
== END 2024-01-06 14:02 | disposition home or self-care (01) ==
LOC: CATHCVL 07:13
PROVIDERS: ATTEND Internal Medicine
DX: I08.0 Rheumatic disorders of both mitral and aortic valves (principal); I71.21 Aneurysm of the ascending aorta, without rupture; I25.119 Atherosclerotic heart disease of native coronary artery with unspecified angina pectoris; I10 Essential (primary) hypertension; E78.5 Hyperlipidemia, unspecified; F32.A Depression, unspecified; Z79.899 Other long term (current) drug therapy
CPT/HCPCS: 93312; 93320; 93325; 93460; 85018; 82810; 99152; 99153; C1769; C1894; C1751; J2250; J1644 ×3; J2001; Q9967; J3010

== ENCOUNTER → 2024-02-04 | Outpatient (CLI) | payer BC ==
--- NOTE | 2024-02-04 09:18 | CT ---
EXAMINATION TYPE: CT lumbar spine wo con DATE OF EXAM: 02/04/2024 COMPARISON: None HISTORY: 63-year-old male with pain, Z9 8.1 arthrodesis TECHNIQUE: Contiguous axial scanning of the lumbar spine without IV contrast. Coronal and sagittal re constructions performed. CT DLP: 1384 mGycm Automated exposure control for dose reduction was used. FINDINGS: Low attenuation of the hepatic parenchyma compatible with fatty infiltration. 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 Severe degenerative disc disease L4-L5 and mild elsewhere throughout the lumbar spine. Advanced hypertrophic facet arthropathy lower lumbar spine. Patient status post L2-L3 posterior and interbody lumbar fusion. Disc osteophyte complex here mildly impresses on the ventral spinal canal without significant spinal canal stenosis. Additional mild bulging discs at L3-L4 and L4-L5 contribute to mild spinal canal narrowing. Vertebral body heights are preserved and alignment is maintained. On the right, changes result in moderate neural foraminal stenosis at L3-L4 and moderate to severe at the fused L2-L3 level. Mild at L4-L5 and L5-S1. On the left, changes result in moderate neural foraminal stenosis at L4-L5. Disc bulge abuts the exit ing left L4 nerve root. Mild neuroforaminal narrowing L2-L3 and L5-S1. IMPRESSION: 1. STATUS POST L2-L3 POSTERIOR AND INTERBODY LUMBAR FUSION. A DISC OSTEOPHYTE COMPLEX HERE MILDLY IMP RESSES ONTO THE VENTRAL THECAL SAC WITHOUT SIGNIFICANT SPINAL CANAL STENOSIS. MODERATE TO SEVERE RIGH T NEURAL FORAMINAL STENOSIS AT L2-L3 AND MILD ON THE LEFT. 2. Moderate to severe degenerative disc disease at L4-L5 and mild elsewhere throughout the lumbar spi ne. Hypertrophic facet arthropathy mid to lower lumbar spine. 3. Mild narrowing of the spinal canal due to bulging discs also at L3-L4 and L4-L5. No high-grade can al compromise. 4. At L4-L5, a left lateral and intraforaminal disc bulge abuts the exiting left L4 nerve root with m oderate neuroforaminal stenosis. 5. 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 Hepatic steatosis.
== END | disposition home or self-care (01) ==
LOC: RADCTMAIN 06:38
PROVIDERS: ATTEND Neurological Surgery
DX: M25.78 Osteophyte, vertebrae (principal); M53.3 Sacrococcygeal disorders, not elsewhere classified; M47.816 Spondylosis without myelopathy or radiculopathy, lumbar region; M48.061 Spinal stenosis, lumbar region without neurogenic claudication; M51.36 Other intervertebral disc degeneration, lumbar region; Z98.1 Arthrodesis status; K76.0 Fatty (change of) liver, not elsewhere classified
CPT/HCPCS: 72131

== ENCOUNTER → 2024-12-02 | Outpatient (CLI) | payer BC ==
[2024-12-02 15:23] LABS: Basophils # (A) 0.04 X 10*3/uL (0.00-0.10); Basophils % (A) 0.8 %; Eosinophils # (A) 0.14 X 10*3/uL (0.04-0.35); HCT 45.9 % (39.6-50.0); Lymphocytes # (A) 1.03 X 10*3/uL (0.90-5.00); Lymphocytes % (A) 21.7 %; MCH 29.8 pg (27.0-32.0); MCHC 32.7 g/dL (32.0-37.0); MCV 91.3 FL (80.0-97.0); Mean Platelet Volume 9.7 FL (9.5-12.2); Monocytes % (A) 14.8 %; NRBC Per 100 WBC 0 X 10*3/uL (0.00-0.01); Neutrophils % (A) 59.1 %; Platelet Count 185 X 10*3/uL (140-440); RBC 5.03 X 10*6/uL (4.40-5.60); RDW 13.2 % (11.5-14.5); WBC 4.74 X 10*3/uL (4.50-10.00)
[2024-12-02 15:43] LABS: Blood Urea Nitrogen 21.9 mg/dL (9.0-27.0); Chloride 106 mmol/L (96-109); Glucose 92 mg/dL (70-110); Potassium 4.3 mmol/L (3.5-5.5); Sodium 140 mmol/L (135-145)
[2024-12-02 15:44] LABS: Calcium 8.7 mg/dL (8.7-10.3); Carbon Dioxide 23.7 mmol/L (21.6-31.8)
[2024-12-02 15:49] LABS: Appearance,Urine Clear (Clear); Bilirubin,Urine Negative (Negative); Blood,Urine Negative (Negative); Color,Urine Yellow (Yellow); Ketones,Urine Negative (Negative); Nitrite,Urine Negative (Negative); PH, Urine 6.5
[2024-12-02 15:56] LABS: Bacteria,Urine None Seen (None Seen)
== END | disposition home or self-care (01) ==
LOC: LABWHC1 09:16
PROVIDERS: ATTEND Urology
DX: Z01.812 Encounter for preprocedural laboratory examination (principal); N40.1 Benign prostatic hyperplasia with lower urinary tract symptoms
CPT/HCPCS: 80048; 81001; 85025; 87086

== ENCOUNTER 2024-12-13 09:36 | Day surgery (SDC) | payer BC ==
--- NOTE | 2024-12-06 19:03 | P.HPIHPCON ---
History of Present Illness H&P Date: 12/06/24 Chief Complaint: BPH This is a 64-year-old male with history of BPH, patient continues to have obstructive urinary symptoms despite medical therapy. Underwent a cystoscopy that showed evidence of bilateral occlusive lobes. Option of a UroLift versus TURP were discussed with him. Risk and benefit of each approach were discussed in details. He agreed to proceed with a UroLift. He is aware of the risk which include but not limited to bleeding, infection, urinary incontinence, potential persistent symptoms. He understood all the risk and agreed to proceed Consent for Procedure: I have explained the operation/procedure to the patient, including the risks, benefits, side effects, alternative therapies (including not receiving the proposed treatment or service), the likelihood of the patient achieving his/her goals, and potential recuperation problems for the procedure/sedation/analgesia, as well as any blood products, if indicated. I also explained to the patient the risks, benefits and side effects of the alternatives, as well as the risks related to not receiving the proposed procedure, care, treatment, or services. Past Medical History Past Medical History: GERD/Reflux, Hyperlipidemia, Hypertension Additional Past Medical History / Comment(s): bad ears, bad back History of Any Multi-Drug Resistant Organisms: None Reported Past Surgical History: Back Surgery Additional Past Surgical History / Comment(s): BILATERAL EYE SURGERY , MULTIPLE EAR SURGERIES Past Anesthesia/Blood Transfusion Reactions: Previous Problems w/ Anesthesia Additional Past Anesthesia/Blood Transfusion Reaction / Comment(s): '"COMBATIVE COMING OUT OF SURGERY" Smoking Status: Never smoker Past Alcohol Use History: Daily, Occasional Additional Past Alcohol Use History / Comment(s): started smoking at age 20 quit at age 21 smoked 1/2ppd - Past Family History Father Family Medical History: Cancer Medications and Allergies Home Medications Medication Instructions Recorded Confirmed Type Atorvastatin [Lipitor] 20 mg PO QAM 05/12/21 01/05/24 History Tamsulosin HCl [Flomax] 0.4 mg PO QAM 05/12/21 01/05/24 History Losartan [Cozaar] 100 mg PO QAM 07/27/22 01/05/24 History Meloxicam [Mobic] 15 mg PO DAILY PRN 01/05/24 01/06/24 History Omeprazole [PriLOSEC] 20 mg PO DAILY 01/05/24 01/05/24 History Aspirin 81 mg PO ONCE 01/06/24 01/06/24 History Metoprolol Succinate [Metoprolol 25 mg PO DAILY #90 tab 01/06/24 Rx Succinate ER] Allergies Allergy/AdvReac Type Severity Reaction Status Date / Time No Known Allergies Allergy Verified 01/06/24 07:30 Surgical - Exam - General no distress, no pain - Eyes normal ocular movement, no pale - ENT normal nares, normal mucosa - Respiratory normal expansion, normal respiratory effort Assessment and Plan Assessment: OR for Urolift
[~2024-12-13 09:36] MED LIST changes: -ALPRAZolam 0.25 MG TAB PO PRN; -HEPARIN SODIUM,PORCINE (1 ML) 2,500 UNIT in SODIUM CHLORIDE 0.9% 250 ML IRRIGATION PRN; -HEPARIN SODIUM,PORCINE 10,000 UNIT in SODIUM CHLORIDE 0.9% 1,000 ML IRRIGATION PRN; +HYDROmorphone 0.5 MG/0.5 ML SYRINGE IVP PRN; +MIDAZOLAM 2 MG/2 ML VIAL IV PRN; -NITROGLYCERIN SL TABS 0.4 MG TAB SUBLINGUAL PRN; +SCOPOLAMINE 1 MG/72 HR PATCH TRANSDERM ONE
[2024-12-13] MEDS: IV FLUID CONTINUATION 1,000 ML IV ONE (09:54)
[2024-12-13 10:13] VITALS: RESP 16
[2024-12-13] MEDS: ONDANSETRON 4 MG/2 ML VIAL IVP ONE (10:21)
[2024-12-13] MEDS: DEXAMETHASONE SOD PHOSPHATE 4 MG/ML 1 ML VIAL IV ONE (10:21)
[2024-12-13] MEDS: FAMOTIDINE 20 MG/2 ML VIAL IV STA (10:31)
[2024-12-13] MEDS: LACTATED RINGERS 1,000 ML IV SCH (10:31)
[2024-12-13] MEDS ORDERED: PROPOFOL 10 MG/ML 20 ML VIAL IV ONE (10:35)
[2024-12-13] MEDS ORDERED: fentaNYL (PF) 50 MCG/ML 2 ML AMP ONE (10:35)
[2024-12-13] MEDS ORDERED: SUCCINYLCHOLINE CHLORIDE 200 MG/10 ML VIAL IV ONE (10:35)
[2024-12-13] MEDS ORDERED: LIDOCAINE 1% INJ 10MG/ML (20 ML MDV) ONE (10:35)
[2024-12-13] MEDS ORDERED: MIDAZOLAM 2 MG/2 ML VIAL ONE (10:35)
[2024-12-13] MEDS ORDERED: ePHEDrine 50 MG/ML 1 ML VIAL ONE (10:35)
[2024-12-13 11:34] VITALS: TEMP 97.5
--- NOTE | 2024-12-13 11:39 | P.OP ---
Date of Procedure: 12/13/24 Preoperative Diagnosis: BPH Postoperative Diagnosis: Same Procedure(s) Performed: UroLift x 7 Implants: UroLift clip Anesthesia: CARLYA Surgeon: Brandon Hernandez Estimated Blood Loss (ml): 5 Pathology: none sent Condition: stable Disposition: PACU Indications for Procedure: This is a 64-year-old male with history of BPH, patient continues to have obstructive urinary symptoms despite medical therapy. Underwent a cystoscopy that showed evidence of bilateral occlusive lobes. Option of a UroLift versus TURP were discussed with him. Risk and benefit of each approach were discussed in details. He agreed to proceed with a UroLift. He is aware of the risk which include but not limited to bleeding, infection, urinary incontinence, potential persistent symptoms. He understood all the risk and agreed to proceed Description of Procedure: Patient was brought to the operating room, general anesthesia was induced. He was prepped and draped in sterile fashion and placed in dorsal lithotomy position. Cystoscopy fitted with 20-Y[place] sheath was inserted per urethra, cystoscopy was performed which showed no abnormality within the bladder, of note patient had bilateral obstructive lateral lobes. Attention was then carried to the urolift implants. A total of 7 implants were placed, 3 on the right side, and 4 on the left side. Implants were placed distal to the bladder neck, but proximal to the Veru. Repeat cystoscopy showed no evidence of implant perforation into the bladder. Repeat cystoscopy also demonstrated an open anterior channel within the prostate. There was no evidence of bleeding, bladder was emptied at end of the case. Patient tolerated the procedure well was taken to PACU in stable condition,
[2024-12-13 12:51] VITALS: BP 135/86; PULSE 61
== END 2024-12-13 13:00 | disposition home or self-care (01) ==
LOC: OR 09:36
PROVIDERS: ATTEND Urology
DX: N40.0 Benign prostatic hyperplasia without lower urinary tract symptoms (principal); I10 Essential (primary) hypertension; E78.5 Hyperlipidemia, unspecified; F90.9 Attention-deficit hyperactivity disorder, unspecified type; K21.9 Gastro-esophageal reflux disease without esophagitis; G47.33 Obstructive sleep apnea (adult) (pediatric); Z87.891 Personal history of nicotine dependence; Z99.89 Dependence on other enabling machines and devices; Z79.82 Long term (current) use of aspirin; Z79.02 Long term (current) use of antithrombotics/antiplatelets; Z79.899 Other long term (current) drug therapy
CPT/HCPCS: 52441; 52442; L8699; J2250; J0330; J1100; J0690; J2405; J2003; J3010; J2704; J1308